=== PATIENT | male | born 2005 | race Caucasian/White ===

== ENCOUNTER 2023-09-06 15:13 | Inpatient (IN) | payer MEDICAID, SELFPAY ==
[2023-09-06] VITALS (15 sets, daily range): BP systolic 83–139; BP diastolic 47–88; PULSE 67–104; RESP 16–18; TEMP 36.6–37.2; O2SAT 92–100; BMI 27.4
[2023-09-06 16:24] LABS: Glucose Point of Care 88 mg/dL (70-110)
[2023-09-06 16:26] LABS: Basophils % 0.3 %; Eosinophils # 0.2 10^3/uL (0.0-0.8); Eosinophils % 1.2 %; Hematocrit 43.7 % (37-53); Lymphocytes # 1.3 10^3/uL (1.5-6.5); Lymphocytes % 10.1 %; Mean Corpuscular HGB Conc 34.3 g/dL (30-55); Mean Corpuscular Hemoglobin 29.5 pg (27-33); Mean Corpuscular Volume 85.9 fl (82-101); Mean Platelet Volume 10.5 fL (7.4-10.4); Monocytes # 0.7 10^3/uL (0.2-0.9); Monocytes % 5.4 %; Neutrophils # 10.76 10^3/uL (1.8-8.0); Neutrophils % 82.6 %; Nucleated Red Blood Cells % 0 %; Platelet Count 252 10^3/cmm (157-399); Red Blood Count 5.09 10^6/uL (3.85-5.65); Red Cell Distribution Width 12.2 % (12.1-15.1); White Blood Count 13.04 10^3/uL (4.5-13.0)
[2023-09-06 16:45] LABS: Alanine Aminotransferase 9 U/L (0-41); Albumin Level 4.4 g/dL (3.5-5.2); Alkaline Phosphatase 89 U/L (40-130); Aspartate Amino Transferase 18 U/L (0-40); Blood Urea Nitrogen 10 mg/dL (6-20); Calcium 8.5 mg/dL (8.5-10.5); Carbon Dioxide 26 mmol/L (22-29); Chloride 103 mmol/L (98-107); Creatinine Clr Calc Pharmacy 108.4799; Globulin 3.1 g/dL (1.3-4.6); Glomerular Filtration Rate 96.3 mL/min (90-130); Glucose 104 mg/dL (65-115); Osmolality Calculated 285 mOsm/kg (285-295); Sodium 138 mmol/L (136-145); Total Bilirubin 0.2 mg/dL (0.15-1.2); Total Protein 7.5 g/dL (6.6-8.7)
--- NOTE | 2023-09-06 17:02 | W.ED.ABDPA2 ---
HPI - Abdominal Pain General: Chief Complaint: Abdominal Pain Stated Complaint: abd pain sent by [facility] Seen by Provider: 09/06/23 17:02 Source: patient Mode of arrival: ambulatory Limitations: no limitations History of Present Illness: Patient is a very nice 17-year-old male presents to ED today with a complaint of left lower abdominal pain over the past 4 days or so. Yesterday he began developing nausea, vomiting, diarrhea. Patient was initially seen at [facility] and had labs as well as a CT scan performed. He states he was called later today stating that the CT scan showed appendicitis and that he needed to come to [facility] for further evaluation/treatment. On arrival he does present with a CT report that shows concern for ruptured appendicitis. Vital signs are stable upon arrival apart from some very mild tachycardia. He has not been running fevers. He states he has not been able to keep anything down all day today. MD elicited complaint: abdominal pain Pertinent past history: none Onset (ago): day(s) Pain Consistency: constant Location: LLQ Severity: moderate Quality: sharp Radiation: none Migration to: no migration Exacerbating factors: nothing Relieving factors: nothing Associated Symptoms: Reports diarrhea, nausea and vomiting; Denies chills, dysuria, fever(s) and hematemesis Review of Systems Const: Denies: fever(s), chills, body aches, fatigue or malaise Card: Denies: chest pain Resp: Denies: dyspnea GI: Reports: abdominal pain, nausea, vomiting and diarrhea; Denies: hematemesis : Denies: flank pain, difficulty urinating, dysuria, urinary frequency or urinary urgency Musc: Denies: neck pain, back pain, extremity pain or joint pain Skin/Breast: Denies: rash Neuro: Denies: headache(s) Physical Exam Const: COMMON NORMALS: no acute distress, average body habitus, patient oriented x3, no limitations, healthy appearing, alert and well nourished Eye: COMMON NORMALS: no scleral icterus Resp: COMMON NORMALS: normal respiratory effort and clear to auscultation bilaterally AUSCULTATION: clear to auscultation bilaterally Cardio: COMMON NORMALS: regular rhythm RATE: tachycardic RHYTHM: regular rhythm GI: COMMON NORMALS: Normal to inspection, nondistended, normoactive bowel sounds present, Soft to palpation, No hepatosplenomegaly present and no masses INSPECTION: Yes normal to inspection AUSCULTATION: Yes normoactive bowel sounds PALPATION: Yes Soft to palpation, Yes Tenderness to palpation present (GI) Details: LLQ, No Guarding due to palpation present (GI), No Rigid due to palpation and Yes No hepatosplenomegaly present : COMMON NORMALS: Yes no CVA tenderness BLADDER/KIDNEY EXAM: Yes no CVA tenderness Back/Pelvis: COMMON NORMALS: no CVA tenderness Neuro: COMMON NORMALS: patient oriented x3 SENSORIUM/ORIENTATION: Yes alert Course Vital Signs: Vital signs: Vital Signs Temperature 97.8 F 09/06/23 15:19 Pulse Rate 104 H 09/06/23 15:19 Respiratory Rate 16 09/06/23 15:19 Blood Pressure 133/77 09/06/23 15:19 Pulse Oximetry 98 09/06/23 15:19 Oxygen Delivery Me thod Room Air 09/06/23 15:19 MDM - Abdominal Pain Medical Decision Making Patient is a 17-year-old male here with left-sided abdominal pain over the past 4 days or so. Clinically he is not having much right lower quadrant abdominal pain. He does present with a CT scan from [facility] with concerns for ruptured appendicitis. I did run case by Dr. Schaefer. He does have a mild leukocytosis. He is mildly tachycardic. Silvano at this time is planning for OR unless something changes on his assessment of patient. He will be kept NPO and started on IV Zosyn. He will be a roll over to surgery at this time. Dr. Peters aware of patient and agrees with ED care plan. Lab Data 09/06/23 16:02 09/06/23 16:02 Labs/Radiology: Laboratory Results WBC 13.04 10^3/uL (4.5-13.0) H 09/06/23 16:02 RBC 5.09 10^6/uL (3.85-5.65) 09/06/23 16:02 Hgb 15.00 g/dL (13.2-15.6) 09/06/23 16:02 Hct 43.7 % (37-53) 09/06/23 16:02 MCV 85.9 fl (82-101) 09/06/23 16:02 MCH 29.5 pg (27-33) 09/06/23 16:02 MCHC 34.3 g/dL (30-55) 09/06/23 16:02 RDW 12.2 % (12.1-15.1) 09/06/23 16:02 Plt Count 252 10^3/cmm (157-399) 09/06/23 16:02 MPV 10.5 fL (7.4-10.4) H 09/06/23 16:02 Neut % (Auto) 82.6 % 09/06/23 16:02 Lymph % (Auto) 10.1 % 09/06/23 16:02 Vermilion % (Auto) 5.4 % 09/06/23 16:02 Eos % (Auto) 1.2 % 09/06/23 16:02 Baso % (Auto) 0.3 % 09/06/23 16:02 Neut # (Auto) 10.76 10^3/uL (1.8-8.0) H 09/06/23 16:02 Lymph # (Auto) 1.3 10^3/uL (1.5-6.5) L 09/06/23 16:02 Vermilion # (Auto) 0.7 10^3/uL (0.2-0.9) 09/06/23 16:02 Eos # (Auto) 0.2 10^3/uL (0.0-0.8) 09/06/23 16:02 Baso # (Auto) 0.0 10^3/uL (0.0-0.1) 09/06/23 16:02 Nucleated RBC % (auto) 0 % 09/06/23 16:02 Nucleated RBCs # 0.0 /100WBC 09/06/23 16:02 Sodium 138 mmol/L (136-145) 09/06/23 16:02 Potassium 3.9 mmol/L (3.5-5.1) 09/06/23 16:02 Chloride 103 mmol/L (98-107) 09/06/23 16:02 Carbon Dioxide 26 mmol/L (22-29) 09/06/23 16:02 Anion Gap 12.9 (5-19) 09/06/23 16:02 BUN 10 mg/dL (6-20) 09/06/23 16:02 Creatinine 1.0 mg/dL (0.7-1.2) 09/06/23 16:02 GFR Calculation 96.3 mL/min (90-130) 09/06/23 16:02 Glucose 104 mg/dL (65-115) 09/06/23 16:02 POC Glucose 88 mg/dL (70-110) 09/06/23 16:00 Calculated Osmolality 285 mOsm/kg (285-295) 09/06/23 16:02 Calcium 8.5 mg/dL (8.5-10.5) 09/06/23 16:02 Total Bilirubin 0.2 mg/dL (0.15-1.2) 09/06/23 16:02 AST 18 U/L (0-40) 09/06/23 16:02 ALT 9 U/L (0-41) 09/06/23 16:02 Alkaline Phosphatase 89 U/L (40-130) 09/06/23 16:02 Total Protein 7.5 g/dL (6.6-8.7) 09/06/23 16:02 Albumin 4.4 g/dL (3.5-5.2) 09/06/23 16:02 Globulin 3.1 g/dL (1.3-4.6) 09/06/23 16:02 All radiology interpretation(s) finalized by discharge Discharge Plan Discharge Patient Disposition: Admitted As Inpatient Clinical Impression: Acute appendicitis Qualifiers: Acute appendicitis type: with generalized peritonitis Appendicitis gangrene presence: without gangrene Appendicitis perforation presence: with perforation Appendicitis abscess presence: without abscess Qualified Code(s): K35.201 - Acute appendicitis with generalized peritonitis, with perforation, without abscess Condition: Stable Prescriptions: No Action No Known Home Medications cephalexin [Keflex] 500 mg capsule 500 mg PO Q8H 10 Days Qty: 30 0RF Coding Level of Care Code ED Artillery Specialist for g Tha
[2023-09-06 17:31] LABS: Anion Gap 12.9 (5-19); Potassium 3.9 mmol/L (3.5-5.1)
[2023-09-06] MEDS: piperacillin-tazobactam 3.375 GM in sodium chloride 0.9% (plus) 50 ML IV (17:37)
--- NOTE | 2023-09-06 17:58 | P.HP_ITS ---
Providers/Chief Complaint 2 Chief Complaint: abd pain sent by [facility] History of Present Illness Mariya Ruiz is a 17 year old male who presented to an outside hospital with a 4-day history of abdominal pain nausea vomiting and chills. CT at the outside hospital reportedly shows fluid collection in the right lower quadrant with inflammation around the terminal ileum and a small amount of air outside of the appendix, indicative of possible perforated appendicitis or possibly an less likely Crohn's disease. He has leukocytosis and tachycardia. His pain is currently mostly in the right lower quadrant and does not radiate. Palpation makes pain worse. Stretching makes the pain better. He reports emesis but denies any hematemesis. He has not eaten anything since yesterday Review of Systems 2 General: Reports: 10 or more systems reviewed and unremarkable except in HPI and below Medications/Allergies Home Medications Medication Instructions Recorded Confirmed Last Taken Type No Known Home Medications 09/03/19 09/03/19 Unknown History cephalexin 500 mg capsule (Keflex) 500 mg PO Q8H 10 days #30 caps 09/03/19 09/03/19 Unknown Rx Allergies Allergy/AdvReac Type Severity Reaction Status Date / Time No Known Allergies Allergy Verified 09/03/19 15:00 Vitals/I&O/Wt Last Vital Signs Temp 97.8 F 09/06/23 15:19 Pulse 104 H 09/06/23 15:19 Resp 16 09/06/23 15:19 BP 133/77 09/06/23 15:19 Pulse Ox 98 09/06/23 15:19 O2 Del Method Room Air 09/06/23 15:19 Weight last 48 hrs Weight 160 lb Physical Exam 2 Narrative: General : Patient is well developed , no acute distress, oriented x3 Head : Normal cephalic, a-traumatic. Ears : Pinnae and external canal are normal. Hearing is normal. Eyes : PERRLA, Sclera and injection are normal. No conjunctival discharge. Nose : Mucous membranes are without erythema. Throat : buccal mucosa is normal, gums are without significant recession or hypertrophy. Lungs : Equal chest rise bilaterally, no use of accessory muscles, trachea is midline. Cor : Rate and rhythm are normal. Abdomen : Soft, ND, mild right lower quadrant tenderness, negative Rovsing's, no g/r/m Extremities : No edema, no cyanosis or clubbing, dorsalis pedis pulses are present bilaterally, non-tender to palpation of calves. Upper extremities are normal bilaterally. Back : non-tender to palpation, no CVA tenderness. Neuro : CN II - XII intact, Upper and lower extremities have equal and full strength Data 09/06/23 16:02 09/06/23 16:02 Micro: Microbiology 09/06/23 15:50 Blood Culture - Preliminary Blood SPECIMEN COLLECTED 09/06/23 16:02 Blood Culture - Preliminary Blood SPECIMEN COLLECTED A&P Assessment and plan (1) Acute appendicitis: Qualifiers: Acute appendicitis type: with generalized peritonitis Appendicitis abscess presence: without abscess Appendicitis gangrene presence: without gangrene Appendicitis perforation presence: with perforation Qualified Code(s): K35.201 - Acute appendicitis with generalized peritonitis, with perforation, without abscess (2) Sepsis: Plan Zosyn Laparoscopic Appendectomy The risks and benefits of the procedure, including but not limited to, bleeding, infection, scar, numbness, pain, damage to surrounding structures, conversion to an open procedure, were explained to the patient. He is understanding of the risks and wishes to proceed. If he does have perforated appendicitis, which I suspect, he will need to stay in the hospital for 2 to 5 days for IV antibiotics and will receive a repeat CT of the abdomen pelvis before he is discharged Attestations 2 Medical Necessity Statement*: If he does have perforated appendicitis, which I suspect, he will need to stay in the hospital for 2 to 5 days for IV antibiotics and will receive a repeat CT of the abdomen pelvis before he is discharged Coding Level of Care Code 84393 Diagnoses Acute appendicitis K35.201 Acute appendicitis type: with generalized peritonitis Appendicitis abscess presence: without abscess Appendicitis gangrene presence: without gangrene Appendicitis perforation presence: with perforation Sepsis A41.9
[2023-09-06] MEDS: sodium chloride 0.9% 1,000 ML 30 ML IV (18:08)
--- NOTE | 2023-09-06 18:21 | P.ANESASSM_ITS ---
Pre-Anesthetic Assessment Height/Weight: Height 1.63 m Weight 72.575 kg Temp Pulse Resp BP Pulse Ox O2 Del Method 98.7 F 80 17 136/74 99 Room Air 09/06/23 18:00 09/06/23 18:00 09/06/23 18:00 09/06/23 18:00 09/06/23 18:00 09/06/23 18:00 Operation Date: 09/06/23 18:00 Proposed Procedures p Laparoscopic Appendectomy(Not Applicable) - Gilberto Schaefer, DO Was Beta Wolf taken within 24 hours: N/A Last intake: Intake Last Liquid Date 09/06/23 Last Liquid Time 13:00 Last Solid Date 09/06/23 Last Solid Time 13:00 Social Alcohol and Tobacco Airway Submandibular: within normal limits Cervical ROM: within normal limits Mallampati: Class II History/ROS No significant history except as noted Anesthetic Plan ASA status: 2E Anesthesia: General Medications/Allergies Home Medications Medication Instructions Recorded Confirmed Last Taken Type No Known Home Medications 09/03/19 09/03/19 Unknown History cephalexin 500 mg capsule (Keflex) 500 mg PO Q8H 10 days #30 caps 09/03/19 09/03/19 Unknown Rx Allergies Allergy/AdvReac Type Severity Reaction Status Date / Time No Known Allergies Allergy Verified 09/03/19 15:00 Current Medications Generic Name Dose Route Start Last Admin Trade Name Freq PRN Reason Stop Dose Admin Sodium Chloride 1,000 mls @ 30 mls/hr 09/06/23 18:15 09/06/23 18:08 Sodium Chloride 0.9% IV 30 mls/hr .Q24H JEREMIE Administration Data Anesthesia 09/06/23 16:02 09/06/23 16:02 Short CBC 09/06/23 Range/Units 16:02 WBC 13.04 H (4.5-13.0) 10^3/uL Hgb 15.00 (13.2-15.6) g/dL Hct 43.7 (37-53) % MCV 85.9 (82-101) fl Plt Count 252 (157-399) 10^3/cmm Neut % (Auto) 82.6 % Neut # (Auto) 10.76 H (1.8-8.0) 10^3/uL BMP 09/06/23 16:02 Sodium 138 Potassium 3.9 Chloride 103 Carbon Dioxide 26 BUN 10 Creatinine 1.0 Glucose 104 Calcium 8.5 Liver Function 09/06/23 Range/Units 16:02 Total Bilirubin 0.2 (0.15-1.2) mg/dL AST 18 (0-40) U/L ALT 9 (0-41) U/L Alkaline Phosphatase 89 (40-130) U/L Albumin 4.4 (3.5-5.2) g/dL Microbiology 09/06/23 15:50 Blood Culture - Preliminary Blood SPECIMEN COLLECTED 09/06/23 16:02 Blood Culture - Preliminary Blood SPECIMEN COLLECTED Cardiac Studies: 2 No Data to Display
[2023-09-06] MEDS: lidocaine-epi 1% 20 mL INJ 10 ML INJECTION (18:41)
--- NOTE | 2023-09-06 19:09 | P.OP_ITS ---
Operative Report Date of procedure: September 06, 2023 Pre-op diagnosis: Appendicitis with possible perforation Post-op diagnosis: Normal appendix, pelvic fluid collection Procedure done: Laparoscopic appendectomy Implants: None Specimens removed/disposition: Appendix Surgeon: Gilberto Schaefer DO Anesthesia: General and Local Estimated blood loss (mL): 5 Complications: None apparent Brief History: This very pleasant 17-year-old gentleman who presented to the hospital with a 4- day history of left lower quadrant and right lower quadrant abdominal pain. CT at outside facility was read as abnormal appendix with pelvic fluid and extraluminal air adjacent to the appendix, concerning for perforated appendicitis and less likely Crohn's disease. Laparoscopic appendectomy was indicated. The risk and benefits were explained and documented. Procedure: Patient was wheeled into the operative room and placed on the OR table in a supine position. Abdomen was inspected prepped and draped in usual sterile fashion. Time-out was performed and all present were in agreement. A 15 blade scalp was used to make a stab incision in the left upper quadrant and intra- abdominal insufflation was achieved using a Veress needle. After localizing the tissue incisions were made and a 12 millimeter trocar was placed into the umbilicus as well as a 5mm in the right lower quadrant and a 5 mm in the left lower quadrant . The appendix was identified and appeared normal. I explored the rest of the abdomen with the laparoscope and found serosanguineous fluid in the pelvis but no other pathology. I ran the ileum and did not find any obvious pathology. There possibly was some mild inflammation of the terminal ileum, but it was very mild. There was no fat creeping or other signs of Crohn's disease. I used the LigaSure to ligate the mesoappendix at the base. I then used 2 PDS endo-loops to snare the base of the appendix. I then used the Voyant to ligate the appendix distally. The appendix was removed from the abdomen using an Endo-Catch bag through the umbilical incision. I suctioned the pelvic fluid. I examined the abdomen and no further pathology was identified. Hemostasis was noted. I then closed the umbilical site with a Eric-Amada and 0 Vicryl suture in a figure of 8 fashion. All ports removed. Skin was washed and dried. Incisions were closed with 4-0 Monocryl in a subcuticular interrupted fashion. Skin glue was applied. Patient tolerated the procedure well.
[2023-09-06] MEDS: fentaNYL 50 mcg/mL INJ 2mL IVP ×2 (19:15→19:25)
[2023-09-06] MEDS: HYDROcodone-acetaminophen 7.5-325 mg Tablet 1 TAB PO (20:14)
--- NOTE | 2023-09-06 20:30 | P.CONIM_ITS ---
Providers/Reason For Consult 2 Consulting Physician/Specialty*: Hospitalist Internal medicine Reason for Consult*: Abdominal pain, appendectomy Attending Physician: Gilberto Schaefer DO History of Present Illness History of Present Illness Mariya Ruiz is a 17 year old male with no past medical history who began having abdominal pain approximately 4 days ago. He reports it was mainly in the left lower quadrant. He was not have any diarrhea. He reports his seem to get a little bit better when he stretched out really big with his left arm, but would not last unless he left his left arm up. He denies any recent injury. He had not had any radiation of the pain anywhere other than perhaps slightly to midline. He had not had any fever. Last night he started to have some vomiting, and loose stool. He vomited at least 5 times and had multiple loose stools. He had some chills at night. He does not think he got food poisoning. No other family members are sick. He denied any colon issues prior to tonight. After seeing his primary care provider some lab work was done, and a noncontrast CT and there was concern for possible perforated appendicitis. He is directly postoperative the surgery. From talking with the surgeon he did not have a evidence of appendicitis or perforation during surgery, or significant colon inflammation. There is no family history of inflammatory bowel disease. He had no blood in his stool, black or tarry stool, or hematemesis. Review of Systems 2 General: Reports: 10 or more systems reviewed and unremarkable except in HPI and below Card: Denies: chest pain Resp: Denies: dyspnea GI: Reports: abdominal pain, nausea, vomiting and diarrhea; Denies: hematemesis, coffee ground emesis, change in stool character or hematochezia Medications/Allergies Home Medications Medication Instructions Recorded Confirmed Last Taken Type No Known Home Medications 09/03/19 09/03/19 Unknown History cephalexin 500 mg capsule (Keflex) 500 mg PO Q8H 10 days #30 caps 09/03/19 09/03/19 Unknown Rx Allergies Allergy/AdvReac Type Severity Reaction Status Date / Time No Known Allergies Allergy Verified 09/03/19 15:00 Current Medications Generic Name Dose Route Start Last Admin Trade Name Freq PRN Reason Stop Dose Admin Hydrocodone Bitart/Acetaminophen 1 tab 09/06/23 19:56 09/06/23 20:14 Hydrocodone-Acetaminophen 7.5-325 Mg Tablet PO 1 tab Q4H PRN Administration MODERATE PAIN PFSH Acute 2 PFSH: Family History (Updated 09/06/23 @ 20:33 by John Grubbs MD) Other Cancer Social History (Updated 09/06/23 @ 20:33 by John Grubbs MD) Smoking and tobacco/nicotine status: current every day tobacco/nicotine user Alcohol intake: never Vitals/I&O/Wt Last Vital Signs Temp 98.1 F 09/06/23 19:56 Pulse 70 09/06/23 19:56 Resp 16 09/06/23 19:56 BP 129/70 09/06/23 19:56 Pulse Ox 98 09/06/23 19:56 O2 Del Method Room Air 09/06/23 19:56 09/06/23 09/06/23 09/06/23 06:59 14:59 22:59 Intake Total 0 / 0 Output Total 5 / 5 Balance -5 / -5 Weight last 48 hrs Weight 72.575 kg Physical Exam 2 Narrative: General exam demonstrates a white male, reporting he has some postoperative pain. HEENT: Atraumatic normocephalic. Oropharynx is clear Neck is supple no lymphadenopathy thyromegaly Cardiovascular regular rate and rhythm, no murmur Lungs clear no wheezing or crackles Abdomen is soft. Surgical site is noted. No drainage. exam demonstrates a normal uncircumcised male with no evidence of testicular mass or hernia Extremities show no cyanosis clubbing or edema Skin no rash Neuro no obvious focal deficits. Data 09/06/23 16:02 09/06/23 16:02 Other Labs: Laboratory from outside clinic was reviewed. White blood cell count was 10.2. CRP was less than 3. LFTs were normal. CT noncontrast of the abdomen and pelvis demonstrated inflammation of the terminal ileum with fluid in that location and question of perforated appendix and abnormal looking appendix. Micro: Microbiology 09/06/23 15:50 Blood Culture - Preliminary Blood SPECIMEN COLLECTED 09/06/23 16:02 Blood Culture - Preliminary Blood SPECIMEN COLLECTED A&P Assessment and plan (1) Abdominal pain: Patient presented with abdominal pain, nausea, vomiting, and diarrhea. He had had the pain for 4 days, but it was mainly on the left side. CT scan was concerning for perforated appendicitis. He was taken to surgery, appendix removed without complication. No gross evidence for inflammation or appendicitis. As he has no significant past history of bowel issues, recent CRP was normal, no family history of inflammatory bowel disease I think this is less likely. I do not believe steroids are indicated at this time. Will go ahead and get stool cultures, C. difficile when he has bowel movements. Monitor for clinical improvement Continue Zosyn Consider blood cultures if fever is noted Repeat laboratory tomorrow. Plan Thank you for this consultation I will continue to follow along with you. Diagnoses Abdominal pain R10.9 Time Spent (min) 43
[2023-09-06] MEDS: sodium chloride 0.9% 1,000 ML 150 ML IV (21:00)
[2023-09-07] MEDS: HYDROcodone-acetaminophen 7.5-325 mg Tablet 1 TAB PO ×4 (00:17→13:02)
[2023-09-07] MEDS: piperacillin-tazobactam 3.375 GM in sodium chloride 0.9% (plus) 50 ML IV ×2 (01:23→10:30)
[2023-09-07 01:30] VITALS: BP 108/58; PULSE 82; O2SAT 92
[2023-09-07] MEDS: sodium chloride 0.9% 1,000 ML 150 ML IV ×2 (03:09→13:02)
[2023-09-07 03:30] VITALS: BP 105/63; PULSE 68; O2SAT 96
[2023-09-07 04:02] LABS: Add Urine Microscopic? NO; Charge for UA Resulting for Rev
[2023-09-07 04:03] LABS: Glucose Urine UA Norm (Normal); Protein Urine Neg (Negative); Urine Appearance Clear (CLEAR); Urine Color Light yellow (Yellow); pH Urine 7 (5-7)
[2023-09-07 04:04] LABS: Bilirubin Urine Neg (Negative); Blood Urine Neg (Negative); Ketones Urine 1+ (Negative); Leukocyte Esterase Urine Negative (Negative); Nitrate Urine Negative (Negative); Urobilinogen Urine Neg (Negative)
[2023-09-07] MEDS: heparin 5,000 unit/mL INJ 1 mL 5000 UNIT SUBCUT ×2 (05:09→13:00)
[2023-09-07 05:42] VITALS: BP 105/63; PULSE 76; RESP 17; TEMP 36.7; O2SAT 98
[2023-09-07 06:26] LABS: Basophils % 0.2 %; Eosinophils % 0.1 %; Hematocrit 41.3 % (37-53); Lymphocytes # 1.3 10^3/uL (1.5-6.5); Lymphocytes % 9.7 %; Mean Corpuscular HGB Conc 33.4 g/dL (30-55); Mean Corpuscular Hemoglobin 29.4 pg (27-33); Mean Corpuscular Volume 87.9 fl (82-101); Mean Platelet Volume 10.6 fL (7.4-10.4); Monocytes # 0.9 10^3/uL (0.2-0.9); Monocytes % 6.5 %; Neutrophils % 83.1 %; Nucleated Red Blood Cells % 0 %; Platelet Count 230 10^3/cmm (157-399); Red Cell Distribution Width 12.5 % (12.1-15.1); White Blood Count 13.37 10^3/uL (4.5-13.0)
[2023-09-07 06:40] LABS: Anion Gap 14.4 (5-19); Blood Urea Nitrogen 10 mg/dL (6-20); Calcium 8.5 mg/dL (8.5-10.5); Carbon Dioxide 24 mmol/L (22-29); Chloride 104 mmol/L (98-107); Creatinine Clr Calc Pharmacy 135.5998; Glomerular Filtration Rate 124.5 mL/min (90-130); Glucose 112 mg/dL (65-115); Osmolality Calculated 286 mOsm/kg (285-295); Potassium 4.4 mmol/L (3.5-5.1); Sodium 138 mmol/L (136-145)
[2023-09-07 07:04] LABS: Alanine Aminotransferase 8 U/L (0-41); Albumin Level 4.2 g/dL (3.5-5.2); Alkaline Phosphatase 81 U/L (40-130); Aspartate Amino Transferase 13 U/L (0-40); Globulin 2.7 g/dL (1.3-4.6); Total Bilirubin 0.3 mg/dL (0.15-1.2); Total Protein 6.9 g/dL (6.6-8.7)
[2023-09-07 07:21] LABS: Magnesium 1.8 mg/dL (1.7-2.2)
[2023-09-07 08:00] VITALS: BP 138/87; PULSE 67; RESP 16; TEMP 36.8; O2SAT 96
[2023-09-07] MEDS: ondansetron 2 mg/ML SDV 2 mL 4 MG IVP (08:18)
[2023-09-07] MEDS: pantoprazole DR 40 mg Tablet PO (08:19)
[2023-09-07 11:25] VITALS: BP 117/71; PULSE 72; RESP 16; TEMP 36.7; O2SAT 98
--- NOTE | 2023-09-07 13:25 | P.DS_ITS ---
Discharge Providers Date of Admission: 09/06/23 18:39 Date of Discharge: September 07, 2023 Attending Provider at Admission: Gilberto Schaefer DO Attending Provider at Discharge: Gilberto Schaefer DO Diagnoses at Discharge Discharge Diagnosis (1) Abdominal pain: Status: Acute Reason for Visit Reason for Visit: abd pain sent by [facility] Course Hospital Course This is a very pleasant 17-year-old gentleman who presented to the hospital with abdominal pain. He originally presented to an outside hospital with abdominal pain nausea vomiting and chills along with loose bowel movements. He underwent a CT of the abdomen pelvis and then was discharged home. He was called at home with CT results showing likely acute appendicitis with perforation. Crohn's disease was also in the differential however less likely. He presented to our ER from home. He underwent laparoscopic appendectomy in which a normal appendix was identified. There was fluid in the pelvis, however no other pathology was seen. There is no fat creeping on the bowel or other indications were Crohn's disease other than possible mild terminal ileitis. He was discharged home the next day with antibiotics and a follow-up appointment Physical Exam Narrative: General : Patient is well developed , no acute distress, oriented x3 Head : Normal cephalic, a-traumatic. Ears : Pinnae and external canal are normal. Hearing is normal. Eyes : PERRLA, Sclera and injection are normal. No conjunctival discharge. Nose : Mucous membranes are without erythema. Throat : buccal mucosa is normal, gums are without significant recession or hypertrophy. Lungs : Equal chest rise bilaterally, no use of accessory muscles, trachea is midline. Cor : Rate and rhythm are normal. Abdomen : Soft, ND, appropriately tender, no g/r/m Extremities : No edema, no cyanosis or clubbing, dorsalis pedis pulses are present bilaterally, non-tender to palpation of calves. Upper extremities are normal bilaterally. Back : non-tender to palpation, no CVA tenderness. Neuro : CN II - XII intact, Upper and lower extremities have equal and full strength Discharge Data Studies Completed and Pending Pending at discharge Category Date Time Status Basic Metabolic Panel AM LABS Lab 09/08/23 04:00 Ordered Basic Metabolic Panel AM LABS Lab 09/09/23 04:00 Ordered Blood Culture Stat Lab 09/06/23 15:50 Results CDIFF [C.Diff PCR (Lab)] Routine Lab 09/06/23 20:37 Uncollected Complete Blood Count w/Auto AM LABS Lab 09/08/23 04:00 Ordered Complete Blood Count w/Auto AM LABS Lab 09/09/23 04:00 Ordered Magnesium AM LABS Lab 09/08/23 04:00 Ordered Magnesium AM LABS Lab 09/09/23 04:00 Ordered Stool Culture - Enteric [Salmonella / Shigella / Campy] Lab 09/06/23 20:37 Ordered Routine Pathology: Surgical [PTH] Routine Pth 09/06/23 19:14 Ordered Laboratory Results WBC 13.37 10^3/uL (4.5-13.0) H 09/07/23 05:59 RBC 4.70 10^6/uL (3.85-5.65) 09/07/23 05:59 Hgb 13.80 g/dL (13.2-15.6) 09/07/23 05:59 Hct 41.3 % (37-53) 09/07/23 05:59 MCV 87.9 fl (82-101) 09/07/23 05:59 MCH 29.4 pg (27-33) 09/07/23 05:59 MCHC 33.4 g/dL (30-55) 09/07/23 05:59 RDW 12.5 % (12.1-15.1) 09/07/23 05:59 Plt Count 230 10^3/cmm (157-399) 09/07/23 05:59 MPV 10.6 fL (7.4-10.4) H 09/07/23 05:59 Neut % (Auto) 83.1 % 09/07/23 05:59 Lymph % (Auto) 9.7 % 09/07/23 05:59 Nicholas % (Auto) 6.5 % 09/07/23 05:59 Eos % (Auto) 0.1 % 09/07/23 05:59 Baso % (Auto) 0.2 % 09/07/23 05:59 Neut # (Auto) 11.10 10^3/uL (1.8-8.0) H 09/07/23 05:59 Lymph # (Auto) 1.3 10^3/uL (1.5-6.5) L 09/07/23 05:59 Nicholas # (Auto) 0.9 10^3/uL (0.2-0.9) 09/07/23 05:59 Eos # (Auto) 0.0 10^3/uL (0.0-0.8) 09/07/23 05:59 Baso # (Auto) 0.0 10^3/uL (0.0-0.1) 09/07/23 05:59 Nucleated RBC % (auto) 0 % 09/07/23 05:59 Nucleated RBCs # 0.0 /100WBC 09/07/23 05:59 Sodium 138 mmol/L (136-145) 09/07/23 05:59 Potassium 4.4 mmol/L (3.5-5.1) 09/07/23 05:59 Chloride 104 mmol/L (98-107) 09/07/23 05:59 Carbon Dioxide 24 mmol/L (22-29) 09/07/23 05:59 Anion Gap 14.4 (5-19) 09/07/23 05:59 BUN 10 mg/dL (6-20) 09/07/23 05:59 Creatinine 0.8 mg/dL (0.7-1.2) 09/07/23 05:59 GFR Calculation 124.5 mL/min (90-130) 09/07/23 05:59 Glucose 112 mg/dL (65-115) 09/07/23 05:59 POC Glucose 88 mg/dL (70-110) 09/06/23 16:00 Calculated Osmolality 286 mOsm/kg (285-295) 09/07/23 05:59 Calcium 8.5 mg/dL (8.5-10.5) 09/07/23 05:59 Magnesium 1.8 mg/dL (1.7-2.2) 09/07/23 05:59 Total Bilirubin 0.3 mg/dL (0.15-1.2) 09/07/23 05:59 Direct Bilirubin 0.20 mg/dL (0.00-0.30) 09/07/23 05:59 AST 13 U/L (0-40) 09/07/23 05:59 ALT 8 U/L (0-41) 09/07/23 05:59 Alkaline Phosphatase 81 U/L (40-130) 09/07/23 05:59 Total Protein 6.9 g/dL (6.6-8.7) 09/07/23 05:59 Albumin 4.2 g/dL (3.5-5.2) 09/07/23 05:59 Globulin 2.7 g/dL (1.3-4.6) 09/07/23 05:59 Urine Color Light yellow (Yellow) 09/07/23 03:49 Urine Appearance Clear (CLEAR) 09/07/23 03:49 Urine pH 7 (5-7) 09/07/23 03:49 Ur Specific [place] 1.010 (1.005-1.030) 09/07/23 03:49 Urine Protein Neg (Negative) 09/07/23 03:49 Urine Glucose (UA) Norm (Normal) 09/07/23 03:49 Urine Ketones 1+ (Negative) H 09/07/23 03:49 Urine Blood Neg (Negative) 09/07/23 03:49 Urine Nitrate Negative (Negative) 09/07/23 03:49 Urine Bilirubin Neg (Negative) 09/07/23 03:49 Urine Urobilinogen Neg mg/dL (Negative) 09/07/23 03:49 Ur Leukocyte Esterase Negative (Negative) 09/07/23 03:49 Procedures Performed Laparoscopic appendectomy Vitals Last Vital Signs Temp 98.1 F 09/07/23 11:25 Pulse 72 09/07/23 11:25 Resp 16 09/07/23 11:25 BP 117/71 09/07/23 11:25 Pulse Ox 98 09/07/23 11:25 O2 Del Method Room Air 09/07/23 05:42 Discharge Plan Discharge Patient Disposition: Home Condition: Stable Prescriptions: New sennosides [Senna Laxative] 8.6 mg tablet 8.6 mg PO DAILY PRN (Reason: constipation) Qty: 20 0RF amoxicillin-pot clavulanate 875-125 mg tablet 1 tab PO BID Qty: 10 0RF ondansetron HCl 4 mg tablet 4 mg PO DAILY 3 Days Qty: 10 0RF hydrocodone-acetaminophen 7.5-325 mg tablet 1 tab PO Q6H PRN (Reason: pain) Qty: 20 0RF Discharge Orders: Discharge Order (Routine); Ordered 09/07/23 Ordered By: Gilberto Schaefer Referrals: Gilberto Schaefer DO [Physician] - 2 weeks Discharge Diet: Advance as tolerated and GI Soft Discharge Activity: Resume usual activity Patient Instructions: Opioid Safety Activity Restrictions/Additional Instructions: Do not soak incisions underwater for 2 weeks. Shower daily. Discharge Attestations Time Spent in Discharge Care*: less than 30 min Quality Metrics Clinical Quality Measures [ No reported AMI, CVA or VTE this stay] Coding Level of Care Code Acute Code for Chg Fwd Diagnoses Abdominal pain R10.9
[2023-09-07 13:43] VITALS: BP 117/71; PULSE 72; RESP 16; TEMP 36.7; O2SAT 98
--- NOTE | 2023-09-07 15:20 | PM.MISC ---
Miscellaneous Note Note: Patient's pharmacy has changed. I was asked by my colleague to resend all of patient's discharge medication scripts electronically.
== END 2023-09-07 15:40 | disposition home or self-care (01) | DRG 399 ==
LOC: ER 17:49 → OR 18:17 → MEDSURG 19:08
PROVIDERS: Internal Medicine; Admitting Provider Surgery; Emergency Provider Physician Assistant; Visit Provider Surgery
PROC: 0DTJ4ZZ Resection of Appendix, Percutaneous Endoscopic Approach (ICD-10-PCS; CPT 44970; principal; 2023-09-06 18:00)
DX: R10.31 Right lower quadrant pain (principal); R11.2 Nausea with vomiting, unspecified; R19.7 Diarrhea, unspecified
CPT/HCPCS: 36416; 80048; 80053; 80076; 81003; 82962; 83735; 85025; 87040; 87077; 87205; 88304; 96365; 96372; 99285; J0330; J1100; J1644; J2250; J2405; J2543; J2704; J2710; J3010; J3490; J7030

== ENCOUNTER → 2023-09-16 13:03 | Outpatient (BNVA) | payer MEDICAID, SELFPAY | PROVIDERS: Visit Provider Surgery | DX: Z90.49 Acquired absence of other specified parts of digestive tract (principal); Z98.890 Other specified postprocedural states | CPT/HCPCS: 99024 ==

== ENCOUNTER → 2023-10-18 12:00 | Outpatient (BNVA) | payer MEDICAID, SELFPAY | PROVIDERS: Visit Provider Surgery | DX: Z90.49 Acquired absence of other specified parts of digestive tract (principal); Z98.890 Other specified postprocedural states | CPT/HCPCS: 99024 ==

== ENCOUNTER 2024-11-03 14:47 | Emergency (ER) | payer SELFPAY ==
--- OUTSIDE RECORDS SUMMARY | 2024-11-03 14:55 | XMS_ITS | Encounter Summary ---
Author Organization [facility] Address [address] [place] [address] Care Team Providers Care Head Irrigator Name Role Phone Unavailable Primary Care Provider Unavailabl e Encounter Details Date Type Department Care Team (Latest Contact Info) Description 05/08/2006 Outpatient Historical [facility] Family Medicine- Home [address] [place] [phone] Xin Lopez NP NO ADDRESS ON FILE Cough (Primary Dx); Fever; Other Malaise and Fatigue Social History Tobacco Use Types Packs/Day Years Used Date Smoking Tobacco: Never Assessed Sex and Gender Information Value Date Recorded Sex Assigned at Not on file 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
--- OUTSIDE RECORDS SUMMARY | 2024-11-03 14:55 | XMS_ITS | Encounter Summary ---
Author Organization [facility] Address [address] [place] [address] Care Team Providers Care Back Feeder Plywood Layup Line Name Role Phone Unavailable Primary Care Provider Unavailabl e Encounter Details Date Type Department Care Team (Latest Contact Info) Description 03/13/2007 Outpatient [facility] Family Medicine [address] [phone] Xin Lopez NP NO ADDRESS ON FILE Acute Sinusitis, Unspecified (Primary Dx); Cough Social History Tobacco Use Types Packs/Day Years Used Date Smoking Tobacco: Never Assessed Sex and Gender Information Value Date Recorded Sex Assigned at Not on file 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
--- OUTSIDE RECORDS SUMMARY | 2024-11-03 14:55 | XMS_ITS | Encounter Summary ---
Author Organization [facility] Address [address] [place] [address] Care Team Providers Care Litharge Mill Operator Name Role Phone Unavailable Primary Care Provider Unavailabl e Encounter Details Date Type Department Care Team (Latest Contact Info) Description 04/23/2005 Outpatient Historical 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
--- OUTSIDE RECORDS SUMMARY | 2024-11-03 14:55 | XMS_ITS | Encounter Summary ---
Author Organization [facility] Address [address] [facility] [place] [address] Care Team Providers Care Call Center Rn Name Role Phone Unavailable Primary Care Provider Unavailabl e Encounter Details Date Type Department Care Team (Latest Contact Info) Description 06/27/2004 Outpatient Historical [facility] Family Medicine- Home [address] [place] [phone] Xin Lopez, MAXIMUS NO ADDRESS ON FILE ACUTE URI NOS (Primary Dx) Social History Tobacco Use Types Packs/Day Years Used Date Smoking Tobacco: Never Assessed Sex and Gender Information Value Date Recorded Sex Assigned at Not on file 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
--- OUTSIDE RECORDS SUMMARY | 2024-11-03 14:55 | XMS_ITS | Encounter Summary ---
Author Organization [facility] Address [address] [place] [address] Care Team Providers Care Dynamometer Repairer Name Role Phone Unavailable Primary Care Provider Unavailabl e Encounter Details Date Type Department Care Team (Latest Contact Info) Description 03/20/2005 Outpatient [facility] Family Medicine [address] [place] [phone] Xin Lopez NP NO ADDRESS ON FILE UNSPECIFIED VIRAL INFECTION (Primary Dx); ACUTE BRONCHITIS; DEHYDRATION Social History Tobacco Use Types Packs/Day Years Used Date Smoking Tobacco: Never Assessed Sex and Gender Information Value Date Recorded Sex Assigned at Not on file Legal Sex Male 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
--- OUTSIDE RECORDS SUMMARY | 2024-11-03 14:55 | XMS_ITS | Encounter Summary ---
Author Organization [facility] Address [address] [place] [address] Care Team Providers Care Physical Therapist Assistant Name Role Phone Unavailable Primary Care Provider Unavailabl e Encounter Details Date Type Department Care Team (Latest Contact Info) Description 07/04/2006 Outpatient [facility] Family Medicine [address] [place] [phone] Xin Lopez NP NO ADDRESS ON FILE Unspecified Otitis Media (Primary Dx); Acute Pharyngitis; Unspecified Conjunctivitis Social History Tobacco Use Types Packs/Day Years Used Date Smoking Tobacco: Never Assessed Sex and Gender Information Value Date Recorded Sex Assigned at Not on file 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
--- OUTSIDE RECORDS SUMMARY | 2024-11-03 14:55 | XMS_ITS | Encounter Summary ---
Author Organization [facility] Address [address] [facility] [place] [address] Care Team Providers Care Resident Service Coordinator Name Role Phone Unavailable Primary Care Provider Unavailabl e Encounter Details Date Type Department Care Team (Latest Contact Info) Description 05/01/2005 Outpatient Historical [facility] Family Medicine- Home [address] [place] [phone] Xin Lopez NP NO ADDRESS ON FILE ACUTE SINUSITIS NOS (Primary Dx); ACUTE PHARYNGITIS; ACUTE BRONCHITIS Social History Tobacco Use Types Packs/Day Years Used Date Smoking Tobacco: Never Assessed Sex and Gender Information Value Date Recorded Sex Assigned at Not on file Legal 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
--- OUTSIDE RECORDS SUMMARY | 2024-11-03 14:55 | XMS_ITS | Encounter Summary ---
Author Organization [facility] Address [address] [place] [address] Care Team Providers Care Radar Engineer Name Role Phone Unavailable Primary Care Provider Unavailabl e Encounter Details Date Type Department Care Team (Latest Contact Info) Description 03/19/2005 Outpatient [facility] Family Medicine [address] [place] [phone] Xin Lopez NP NO ADDRESS ON FILE ACUTE PHARYNGITIS (Primary Dx); ACUTE SINUSITIS NOS; ASTHMA UNSPECIFIED Social History Tobacco Use Types Packs/Day Years Used Date Smoking Tobacco: Never Assessed Sex and Gender Information Value Date Recorded Sex Assigned at Not on file Legal 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
--- OUTSIDE RECORDS SUMMARY | 2024-11-03 14:55 | XMS_ITS | Encounter Summary ---
Author Organization [facility] Address [address] [place] [address] Care Team Providers Care Scoring Machine Operator Name Role Phone Unavailable Primary Care Provider Unavailabl e Encounter Details Date Type Department Care Team (Late st Contact Info) Description 04/15/2018 Ancillary Orders [facility] Admitting [address] [place] [phone] [facility] , JAYNA Mata [address] [place], [place] [address] Right facial pain Social History Tobacco Use Types Packs/Day Years Used Date Smoking Tobacco: Never Smokeless Tobacco: Never Sex and Gender Information Value Date Recorded Sex Assigned at Not on file Legal 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 Exam: XR ORBITS 4+ VW Date/Time of Exam: 04/15/2018 4:49 PM Reason For Exam: See Diagnosis. Diagnosis: Right facial pain. Findings: The bony orbits appear intact. No fracture or lytic lesion is seen. The temporal bones are well aerated. The calvarium appears normal. Moderate mucosal thickening is seen in the left maxillary sinus. IMPRESSION: No bone abnormality is appreciated. Some mucosal thickening is seen in the left maxillary sinus. Narrative Procedure Note Bao Johnston MD - 04/16/2018 IMPRESSION: Please see below. Exam: XR ORBITS 4+ VW Date/Time of Exam: 04/15/2018 4:49 PM Reason For Exam: See Diagnosis. Diagnosis: Right facial pain. Findings: The bony orbits appear intact. No fracture or lytic lesion is seen. The temporal bones are well aerated. The calvarium appears normal. Moderate mucosal thickening is seen in the left maxillary sinus. IMPRESSION: No bone abnormality is appreciated. Some mucosal thickening is seen in the left maxillary sinus. Nicholas Diana Sr., LADIES UNDERWEAR OPERATOR DIAGNOSTIC IMAGIN G ORDERABLES Final Result documented in this encounter Visit Diagnoses Diagnosis Right facial pain Headache Right facial pain Headache documented in this encounter
--- OUTSIDE RECORDS SUMMARY | 2024-11-03 14:55 | XMS_ITS | Clinical Summary ---
Author Organization [facility] Address [address] [place] [address] Care Team Providers Care Vacuum Plastic Forming Machine Operator Name Role Phone Unavailable Primary Care Provider Unavailabl e Allergies No known active allergies Medications ondansetron (ZOFRAN) 4 mg Tablet Take 1 Tablet (4 mg) by mouth every 4 hours as needed for Nausea. 12 Tablet None 04/09/2018 Active HYDROcodone-acet aminophen (NORCO) 5-325 mg tablet One tablet every 6 hrs as needed for pain.. 10 Tablet 04/09/2018 Active Immunizations Immunization Administration Dates Next Due (M-M-R II/PRIORIX)(12 MO UP) MEASLES, MUMPS AND RUBELLA VIRUS VACCINE, 0.5 ML IM/SUBCUT 12/22/2008 Social History Tobacco Use Types Packs/Day Years Used Date Smoking Tobacco: Never Smokeless Tobacco: Never Sex and Gender Information Value Date Recorded Sex Assigned at Not on file Legal Sex Male 3:23 AM STUDIO OPERATOR Gender Identity Not on file Sexual Orientation Not on file Last Filed Vital Signs Vital Sign Reading Time Taken Comments Blood Pressure 105/48 04/09/2018 2:17 PM STUDIO OPERATOR Pulse 85 04/09/2018 11:33 AM STUDIO OPERATOR Temperature 36.7 C (98 F) 04/09/2018 2:17 PM STUDIO OPERATOR Respiratory Rate 18 04/09/2018 2:17 PM STUDIO OPERATOR Oxygen Saturation 100% 04/09/2018 2:17 PM STUDIO OPERATOR Inhaled Oxygen Concentration - - Weight 54.9 kg (121 lb) 04/09/2018 10:19 AM STUDIO OPERATOR Height - - Body Mass Index - - Plan of Treatment Health Maintenance Due Date Last Done Comments HPV VACCINES (1 - Male 3-dose series) 10/08/2018 DTAP/TDAP/TD VACCINES (1 - Tdap) 10/08/2022 HEPATITIS B VACCINES (1 of 3 - 19+ 3-dose series) 09/2022 INFLUENZA VACCINE (#1) 2023 Insurance [facility] MEDICAID Member Subscriber Plan / Payer (Ef fective 2020-Present) Name:Bharati Ruiz Relation to Subscriber:Self Name:Bharati Ruiz Payer ID:Not on file Group ID:Not on file Type:Medicaid Managed Care Address: [place] [id number] [place] [address] MEDICAID
[2024-11-03 14:58] VITALS: BP 136/75; PULSE 79; RESP 16; TEMP 36.7; O2SAT 99
[2024-11-03 15:36] VITALS: RESP 18; O2SAT 99
--- NOTE | 2024-11-03 15:49 | ED_ITS ---
HPI - General Adult 2 General: Chief complaint: General Medical Stated complaint: blood in stool Time Seen by Provider: 11/03/24 15:27 History of Present Illness: Patient is a 19-year-old gentleman without medical history, status post cholecystectomy with Dr. Schaefer that presents to the emergency room due to bloody stools. This is bright red in nature. Denies hemorrhoids. Patient denies IBD, or family history. He was told by Dr. Schaefer that he may need to have biopsy for Crohn's disease last year. He has not had any issues. Patient stated he had a issue with diarrhea approximately 1 week ago, and this resolved spontaneously. He then had a stool this morning that was looser, and bright red blood. He stated it kept coming. He then had a second stool that was looser with bright red blood. He admits to left lower quadrant abdominal pain associated. Denies nausea, vomiting. Denies previous history of bloody stools. No fevers. Associated symptoms: Deny chest pain, dyspnea, headache(s), nausea, rash, palpitations or vomiting Related Data Home Medications ?Medication ?Instructions ?Recorded ?Confirmed acetaminophen 500 mg tablet 500 mg PO Q6H PRN 09/16/23 10/18/23 (Tylenol Extra Strength) ondansetron 4 mg disintegrating mg PO ONCE PRN 4 10/18/23 tablet Previous Rx's ?Medication ?Instructions ?Recorded prednisone 10 mg tablets in a dose 40 mg (4 x 10 mg) P O DAILY #70 ea 11/03/24 pack Allergies Allergy/AdvReac Type Severity Reaction Status Date / Time No Known Allergies Allergy Verified 10/18/23 12:14 Review of Systems 2 Const: Denies: fever(s) or chills ENMT: Denies: throat pain Card: Denies: chest pain or palpitations Resp: Denies: dyspnea or non-productive cough GI: Reports: abdominal pain, diarrhea and other (bloody red stool); Denies: nausea, vomiting, bloating or rectal pain : Denies: flank pain or difficulty urinating Musc: Denies: neck pain, back pain or extremity pain Skin/Breast: Denies: rash or pruritus Neuro: Denies: headache(s) or numbness in extremities Psych: Denies: anxiety or depression Endo: Denies: polyuria or polydipsia PFSH ED 2 PFSH: Surgical History History of laparoscopic appendectomy 09/06/23 Dr Schaefer Family History Other Cancer Social History Smoking and tobacco/nicotine status: current every day tobacco/nicotine user Alcohol intake: never Physical Exam 2 Const: COMMON NORMALS: patient oriented x3 HENMT: COMMON NORMALS: normocephalic and atraumatic HEAD & SCALP: n ormocephalic and atraumatic Neck/C-Spine: COMMON NORMALS: full ROM and no lymphadenopathy Lymph: LYMPHATIC: no lymphadenopathy noted Chest: COMMONS NORMALS: normal inspection of the chest and normal palpation of entire chest wall Resp: COMMON NORMALS: normal respiratory effort, No use of accessory muscles and clear to auscultation bilaterally AUSCULTATION: clear to auscultation bilaterally Cardio: COMMON NORMALS: regular rate, regular rhythm and No murmurs present (Cardio) RATE: regular rate RHYTHM: regular rhythm GI: COMMON NORMALS: Soft to palpation AUSCULTATION: Yes normoactive bowel sounds PALPATION: Yes Soft to palpation, No Firmness to palpation present (GI), Yes Tenderness to palpation present (GI) Details: LLQ (mild), No Guarding due to palpation present (GI), No Rigid due to palpation and No Pulsatile mass present RECTAL EXAM: Yes visual inspection normal, Yes normal sphincter tone, Yes heme positive stool 1+, No Fistula present (GI), No Anal fissure(s) present and No tenderness : COMMON NORMALS: Yes no CVA tenderness BLADDER/KIDNEY EXAM: Yes no CVA tenderness Back/Pelvis: COMMON NORMALS: no CVA tenderness Extremity: COMMON NORMALS: normal to inspection, full ROM and capillary refill normal Neuro: COMMON NORMALS: patient oriented x3 and CN's II-XII intact bilaterally Psych: COMMON NORMALS: mental status grossly normal and Normal thought process present THOUGHT PROCESS: Normal thought process present Skin: COMMON NORMALS: no rashes or lesions noted and no wounds GENERAL SKIN EXAM: no rashes or lesions noted Course 2 Vital Signs: Vital signs: Vital Signs Temperature 98.1 F 11/03/24 14:58 Pulse Rate 79 11/03/24 14:58 Respiratory Rate 18 11/03/24 15:36 Blood Pressure 136/75 11/03/24 14:58 Pulse Oximetry 99 11/03/24 15:36 Oxygen Delivery Me thod Room Air 11/03/24 15:36 MDM - General Adult Medical Decision Making Patient is a 19-year-old male with complaints of left lower quadrant pain, and melena. He does not have any hemorrhoids on digital rectal exam, and has a light positive occult blood. Given his symptoms, history of having issues last year, and recent self resolving diarrhea, I do suspect Crohn's. There is no family history. In any event, patient needs a colonoscopy. He does not need antibiotics at this time. He does not have any nausea, or vomiting. No leukocytosis. I have given him warning flags to come back to the ER such as fever, worsening pain. He will start with a full liquid diet, and advance as his pain tolerates. He is also been told with worsening pain, to go to a clear liquid diet, or return to the ED. I have made a referral to case management for patient to have diagnostic colonoscopy and further care. Discussed CT with patient. His pain is not significant for additional radiation, with this suspicion, I am concerned about future need for CT as well. Patient agrees and would like to forego CT at this time, and continue with treatment while awaiting further diagnostic studies. In the interim, we will diagnose him with melena, with the suspicion of Crohn's. He will be treated with prednisone 40 mg x 1 week, decreasing by 10 mg weekly. Will defer to surgeon for any additional management. Lab Data OB positive 11/03/24 16:01 11/03/24 16:01 Laboratory Results WBC 6.30 10^3/uL (3.29-11.43) 11/03/24 16:01 RBC 4.73 10^6/uL (3.85-5.65) 11/03/24 16:01 Hgb 14.10 g/dL (11.27-16.99) 11/03/24 16:01 Hct 41.0 % (37-53) 11/03/24 16: MCV 86.7 fl (82-101) 11/03/24 16: MCH 29.8 pg (27-33) 11/03/24 16: MCHC 34.4 g/dL (30-55) 11/03/24 16:01 RDW 11.9 % (12.1-15.1) L 11/03/24 16:01 Plt Count 153 10^3/cmm (157-399) L 11/03/24 16:01 MPV 10.3 fL (7.4-10.4) 11/03/24 16:01 Neut % (Auto) 62.6 % 11/03/24 16:01 Lymph % (Auto) 25.1 % 11/03/24 16:01 Jessamine % (Auto) 7.8 % 11/03/24 16:01 Eos % (Auto) 3.2 % 11/03/24 16:01 Baso % (Auto) 1.0 % 11/03/24 16:01 Neut # (Auto) 3.95 10^3/uL (1.8-7.7) 11/03/24 16:01 Lymph # (Auto) 1.6 10^3/uL (0.8-4.8) 11/03/24 16:01 Jessamine # (Auto) 0.5 10^3/uL (0.2-0.9) 11/03/24 16:01 Eos # (Auto) 0.2 10^3/uL (0.0-0.8) 11/03/24 16:01 Baso # (Auto) 0.1 10^3/uL (0.0-0.1) 11/03/24 16:01 Nucleated RBC % (auto) 0 % 11/03/24 16: Nucleated RBCs # 0.0 /100WBC 11/03/24 16:01 Sodium 137 mmol/L (136-145) 11/03/24 16:01 Potassium 4.0 mmol/L (3.5-5.1) 11/03/24 16:01 Chloride 101 mmol/L (98-107) 11/03/24 16:01 Carbon Dioxide 24 mmol/L (22-29) 11/03/24 16:01 Anion Gap 16.0 (5-19) 11/03/24 16:01 BUN 13 mg/dL (6-20) 11/03/24 16:01 Creatinine 0.9 mg/dL (0.7-1.2) 11/03/24 16:01 GFR Calculation 106.5 mL/min (90-130) 11/03/24 16:01 Glucose 97 mg/dL (65-115) 11/03/24 16:01 Calculated Osmolality 284 mOsm/kg (285-295) L 11/03/24 16:01 Calcium 9.1 mg/dL (8.5-10.5) 11/03/24 16:01 Total Bilirubin 0.4 mg/dL (0.15-1.2) 11/03/24 16:01 AST 18 U/L (0-40) 11/03/24 16:01 ALT 10 U/L (0-41) 11/03/24 16:01 Alkaline Phosphatase 76 U/L (40-130) 11/03/24 16:01 Total Protein 7.1 g/dL (6.6-8.7) 11/03/24 16:01 Albumin 4.2 g/dL (3.5-5.2) 11/03/24 16: Globulin 2.9 g/dL (1.3-4.6) 11/03/24 16:01 No radiology studies performed this visit Discharge Plan Discharge Patient Disposition: Home Clinical Impression: Melena Condition: Stable Prescriptions: New prednisone 10 mg tablets,dose pack 40 mg PO DAILY Qty: 70 0RF Rx Instructions: 40 mg orally daily x 1 week, then decrease by 10 mg weekly (4 week course) No Action acetaminophen [Tylenol Extra Strength] 500 mg tablet 500 mg PO Q6H PRN ondansetron 4 mg tablet,disintegrating PO ONCE PRN Discharge Orders: Discharge ED (Routine); Ordered 11/03/24 Ordered By: Tanya Moffett Discharge Diet: Full LIqu[place] Discharge Activity: Resume usual activity Patient Instructions: Crohn Disease (ED), Patient Portal & Rodney Instructions Activity Restrictions/Additional Instructions: Full liquid diet. Advance as tolerated. Return to ED for fevers, worsening pain. You may utilize Tylenol and ibuprofen for worsening pain. Case management will call you for appointment with surgeon for possible colonoscopy. Stand Alone Forms: Work/School Release Print Language: Azerbaijani Coding Level of Care Code ED Cashier General for Aron Almazan
[2024-11-03 16:19] LABS: Hematocrit 41.0 % (37-53); Hemoglobin 14.10 g/dL (11.27-16.99); Mean Corpuscular HGB Conc 34.4 g/dL (30-55); Mean Corpuscular Hemoglobin 29.8 pg (27-33); Mean Corpuscular Volume 86.7 fl (82-101); Nucleated Red Blood Cells % 0 %; Platelet Count 153 10^3/cmm (157-399); Red Blood Count 4.73 10^6/uL (3.85-5.65); White Blood Count 6.30 10^3/uL (3.29-11.43)
[2024-11-03 16:36] LABS: Alanine Aminotransferase 10 U/L (0-41); Albumin Level 4.2 g/dL (3.5-5.2); Alkaline Phosphatase 76 U/L (40-130); Aspartate Amino Transferase 18 U/L (0-40); Blood Urea Nitrogen 13 mg/dL (6-20); Calcium 9.1 mg/dL (8.5-10.5); Carbon Dioxide 24 mmol/L (22-29); Chloride 101 mmol/L (98-107); Creatinine Clr Calc Pharmacy 118.5409; Globulin 2.9 g/dL (1.3-4.6); Glucose 97 mg/dL (65-115); Osmolality Calculated 284 mOsm/kg (285-295); Sodium 137 mmol/L (136-145); Total Protein 7.1 g/dL (6.6-8.7)
[2024-11-03 16:42] LABS: Anion Gap 16.0 (5-19); Potassium 4.0 mmol/L (3.5-5.1)
[2024-11-03 16:57] VITALS: BP 134/74; PULSE 78; O2SAT 99
--- NOTE | 2024-11-04 09:03 | DCPLANNER ---
Message sent to General surgery to follow up- Patient is a 19-year-old male with complaints of left lower quadrant pain, and melena. He does not have any hemorrhoids on digital rectal exam, and has a light positive occult blood. Given his symptoms, history of having issues last year, and recent self resolving diarrhea, I do suspect Crohn's. There is no family history. In any event, patient needs a colonoscopy. He does not need antibiotics at this time. He does not have any nausea, or vomiting. No leukocytosis. I have given him warning flags to come back to the ER such as fever, worsening pain. He will start with a full liquid diet, and advance as his pain tolerates. He is also been told with worsening pain, to go to a clear liquid diet, or return to the ED. I have made a referral to case management for patient to have diagnostic colonoscopy and further care. Discussed CT with patient. His pain is not significant for additional radiation, with this suspicion, I am concerned about future need for CT as well. Patient agrees and would like to forego CT at this time, and continue with treatment while awaiting further diagnostic studies. In the interim, we will diagnose him with melena, with the suspicion of Crohn's. He will be treated with prednisone 40 mg x 1 week, decreasing by 10 mg weekly. Will defer to surgeon for any additional management.
== END 2024-11-03 16:57 | disposition home or self-care (01) ==
PROVIDERS: Emergency Medicine; Emergency Provider Physician Assistant
DX: K92.1 Melena (principal); Z72.0 Tobacco use
CPT/HCPCS: 36415; 80053; 85025; 99283